=== PATIENT | male | born 1940 | race African-American/Black ===

== ENCOUNTER 2017-06-12 18:35 | Emergency (ER) | payer BC ==
--- NOTE | 2017-06-12 18:57 | Emergency Department Record ---
History of Present Illness - General Chief complaint: Rectal bleeding Stated complaint: RECTAL BLEEDING Time Seen by Provider: 06/12/17 18:52 Source: Patient Mode of Arrival: Ambulatory Limitations: No limitations - History of Present Illness Initial comments: 77 yo male presents to ED for evaluation of dark stools that began earlir today. Patient reports a history of PUD and diverticulosis resulting in colon resection for GI bleeding, has received transfusions previously as a result of GI bleeding as well. Patient denies abdominal pain symptoms or loose stools previously. Patient denies the use of anticoagulation medications. Patient has seen Dr. Lowery previously for EGD/Colonoscopy. MD complaint: Other (Clots) Onset/Timin -: Hour(s) Radiation: None Quality: Painless Improves with: None Worsens with: None Context: History of GI bleed Associated Symptoms: Denies other symptoms Treatments Prior to Arrival: None - Related Data Home Medications Medication Instructions Recorded Confirmed Last Taken Furosemide [Lasix] 20 mg PO DAILY 06/12/17 06/12/17 06/12/17 Meloxicam [Meloxicam] 7.5 mg PO DAILY 06/12/17 06/12/17 06/12/17 Previous Rx's Medication Instructions Recorded Hydrocodone/Acetaminophen [[place] 1 - 2 each PO QID #20 tablet 05/27/15 5-325 Tablet] Allergies Allergy/AdvReac Type Severity Reaction Status Date / Time No Known Drug Allergies Allergy Verified 06/12/17 18:52 Travel Screening - Travel/Exposure Within Last 30 Days Have you traveled within the last 30 days?: No Review of Systems Constitutional: Denies: Chills, Fever, Malaise, Night sweats Eyes: Denies: Eye discharge, Eye pain ENT: Denies: Congestion, Ear pain, Epistaxis Respiratory: Denies: Cough, Dyspnea Cardiovascular: Denies: Chest pain, Dyspnea on exertion Endocrine: Reports: Fatigue. Denies: Heat or cold intolerance Gastrointestinal: Reports: Melena. Denies: Abdominal pain, Nausea, Vomiting Genitourinary: Denies: Incontinence, Retention Musculoskeletal: Denies: Arthralgia, Back pain, Gout, Joint swelling Skin: Denies: Bruising, Change in color Neurological: Denies: Abnormal gait, Confusion, Headache Psychiatric: Denies: Anxiety Hematological/Lymphatic: Denies: Anemia, Blood Clots Past Medical History - SOCIAL HISTORY Smoking Status: Former smoker - RESPIRATORY Hx Respiratory Disorders: No - CARDIOVASCULAR Hx Cardio Disorders: Yes Hx Pacemaker/Defib: Yes (July 2014) - NEURO Hx Neuro Disorders: No - GI Hx GI Disorders: No Hx Abdominal Pain: Yes (umbilical and lower abdomen, increases w/ eating) Hx Diverticulitis: Yes Hx Ulcer: Yes Hx Wt Loss/Wt Gain: Yes (down 5-6 lbs in 2-3 months) - Hx Genitourinary Disorders: Yes Hx Prostate Problems: Yes - ENDOCRINE Hx Endocrine Disorders: No - MUSCULOSKELETAL Hx Musculoskeletal Disorders: Yes Hx Arthritis: Yes - PSYCH Hx Psych Problems: No - HEMATOLOGY/ONCOLOGY Hx Hematology/Oncology Disorders: Yes Hx Cancer: Yes (Prostate) Hx Radiation Therapy: Yes Family Medical History Hx Cancer: Brother/Sister Hx Heart Disease: Grandparents Physical Exam - General General Appearance: Alert, Oriented x3, Cooperative, Mild distress Limitations: No limitations - Head Head exam: Atraumatic, Normocephalic, Normal inspection Head exam detail: negative: Abrasion, Contusion, Carrillo's sign, General tenderness, Hematoma, Laceration - Eye Eye exam: Normal appearance. negative: Conjunctival injection, Periorbital swelling, Periorbital tenderness, Scleral icterus - ENT Ear exam: negative: Auricular hematoma, Auricular trauma Nasal Exam: negative: Active bleeding, Discharge, Dried blood Mouth exam: negative: Drooling, Laceration, Tongue elevation - Neck Neck exam: Normal inspection. negative: Meningismus, Tenderness - Respiratory Respiratory exam: Normal lung sounds bilaterally. negative: Respiratory distress, Rhonchi, Stridor, Wheezes - Cardiovascular Cardiovascular Exam: Regular rate, Normal rhythm, Normal heart sounds - GI/Abdominal GI/Abdominal exam: Soft. negative: Distended, Rebound, Rigid, Tenderness - Rectal Rectal exam: Deferred - exam: Deferred - Extremities Extremities exam: Normal inspection, Other (Delayed cap refill on examination). negative: Calf tenderness, Pedal edema, Tenderness - Back Back exam: Denies: CVA tenderness (R), CVA tenderness (L) - Neurological Neurological exam: Alert, Normal gait, Oriented X3 - Psychiatric Psychiatric exam: Normal affect, Normal mood - Skin Skin exam: Normal color. negative: Abrasion Type of lesion: negative: abrasion Course Vital Signs 06/12/17 18:46 Temperature 98.2 F Pulse Rate 90 Respiratory 20 Rate Blood Pressure 141/100 Pulse Ox 96 - Reevaluation(s) Reevaluation #1: 06/12/17 19:31 Labs reviewed, Hgb 9.3 (baseline 13-15, previous 9.7 06/25 during an episode of bleeding). BUN 26, Creatinine 0.9. Will initiate transfer to [facility]. Reevaluation #2: 06/12/17 19:41 Case was discussed with Dr. Fontenot, will arrange for bed placement and accept transfer. Patient and his SO were updated on all results, and plan for transfer. Vitals: BP 141/100, pulse 70's. Medical Decision Making - Lab Data Result diagrams: 06/12/17 19:05 06/12/17 19:05 Disposition Disposition: Transfer Clinical Impression: UGI bleed Disposition: Acute Care Hospital Transfer Transfer To: [facility] Reason For Transfer: UGI bleed, Anemia Accepting Physician: Corie Time Discussed w/Accepting Physician: 19:36 Condition: (2) Stable Forms: Patient Portal Access Time of Disposition: 19:36 Quality - Quality Measures Quality Measures: N/A - Blood Pressure Screening Does Patient Have Any of the Following: Active Dx of HTN Blood Pressure Classification: Hypertensive Reading Systolic Measurement: 141 Diastolic Measurement: 100 Screening for High Blood Pressure: Patient Exclusion, Hx of HTN [[id number]]
[2017-06-12 19:12] LABS: BASO % 0.2 % (0-6); EOS % 4.7 % (0-6); GRAN % 62.2 % (47-80); HEMATOCRIT 30.9 % (42.0-52.0); HEMOGLOBIN 9.3 gm/dl (14.0-18.0); LYMPH % 20.1 % (16-45); MEAN CELL VOLUME 81.3 fl (81-97); MEAN CORPUSCULAR HGB CONC 30.1 g/dl (32-36); MEAN PLATELET VOLUME 10.5 fl (7.4-10.4); MONO % 12.8 % (0-9); PLATELET COUNT 179 K/uL (130-400); RED CELL DISTRIBUTION WIDTH 16.9 % (11.5-14.5); WHITE BLOOD COUNT W/O DIFF 4.1 K/uL (4.2-12.2)
[2017-06-12 19:15] LABS: MEAN CORPUSCULAR HEMOGLOBIN 24.4 pg (27-33)
[2017-06-12 19:22] LABS: INR 1.1; PROTHROMBIN TIME (PATIENT) 11.4 SECONDS (9.5-12.1)
[2017-06-12 19:24] LABS: BLOOD UREA NITROGEN 26 mg/dL (8-23); CREATININE 0.9 mg/dL (0.7-1.2); EST GLOMERULAR FILTRATION RATE > 60 mL/min
[2017-06-12 19:27] LABS: GLUCOSE,RANDOM 113 mg/dL (74-109)
[2017-06-12 19:29] LABS: ALT/SGPT 12 U/L (<41); AST/SGOT 18 U/L (10.0-50.0)
[2017-06-12 19:30] LABS: ALB/GLOB RATIO 1.8 (1.1-1.8); ALBUMIN 3.2 g/dL (4.0-5.0); ALKALINE PHOSPHATASE 46 U/L (40-129)
[2017-06-12] MEDS ORDERED: 0.9 % SODIUM CHLORIDE 1000ML 1,000 ML IV SCH (20:00)
[2017-06-12 20:20] LABS: ABO GROUP A; ANTIBODY SCREEN NEGATIVE (NEGATIVE); RH TYPE POSITIVE
== END 2017-06-12 20:20 | disposition short-term general hospital (02) ==
LOC: ER 18:35
DX: K92.1 Melena (principal); R42 Dizziness and giddiness; I10 Essential (primary) hypertension; Z87.891 Personal history of nicotine dependence; Z95.0 Presence of cardiac pacemaker
CPT/HCPCS: 80053; 85025; 85610; 86850; 86900; 86901; 99285; J7030

== ENCOUNTER 2017-09-08 09:53 | Day surgery (SDC) | payer BC ==
[2017-09-08] MEDS ORDERED: LIDOCAINE 1% MDV (10MG/ML) 20ML VIAL SQ ONE (09:54)
[2017-09-08] MEDS ORDERED: PROPOFOL 10 MG/ML VIAL IV ONE (09:54)
--- NOTE | 2017-09-11 16:56 | Operative Note ---
DATE OF SURGERY: 09/08/2017 OPERATION: ESOPHAGOGASTRODUODENOSCOPY with biopsy. INDICATION: Recently-discovered gastric ulcerations with gastrointestinal tract bleeding. The patient returns at this time after approximately 2 months for reevaluation and particularly to assess healing. ANESTHESIA: Intravenous sedation was administered by the Department of Anesthesiology and included Diprivan titrated to effect. PROCEDURE: Following informed consent from this alert individual, including a discussion of the risks and benefits of the procedure and an opportunity for the patient to ask questions, the patient was in the left lateral decubitus position. The Olympus [id number] video endoscope was inserted into the esophagus without resistance. The proximal esophagus had a normal appearance with normal folds and distensibility. The mid and distal esophagus likewise were free from changes. The squamocolumnar junction was fairly smooth and well defined. The stomach was entered. There was evidence of bile gastritis noted with retained bilious liquid and some erythema to the mucosa. No ulcerations were noted throughout the gastric remnant. The patient had a previous Billroth II gastrectomy with a normal-appearing gastrojejunal anastomosis. The jejunal limbs were normal in appearance. Retroflexion in the stomach failed to demonstrate any additional changes. The endoscope was straightened. Biopsies from the gastric mucosa were obtained to assess for Helicobacter pylori and check histology. The endoscope was then withdrawn back through a normal-appearing esophagus and removed from the patient. He tolerated the procedure well and was returned to the recovery area in stable condition. IMPRESSION: 1. Bilateral gastritis. 2. Healed gastric ulcerations. 3. Status post Billroth II gastric resection. RECOMMENDATION: The patient will be maintained on acid blockade therapy. He is to avoid antiinflammatory medications. Clinically he states he has been doing well without melena, nausea or vomiting. Follow up will be with Dr. Charlie Joaquin and Corbin Acharya. CC: Nemesio Pineda
== END 2017-09-08 11:45 | disposition home or self-care (01) ==
LOC: HOP 09:53
PROVIDERS: ATTEND Internal Medicine Gastroenterology
DX: K29.70 Gastritis, unspecified, without bleeding (principal); Z90.3 Acquired absence of stomach [part of]; K21.9 Gastro-esophageal reflux disease without esophagitis; I10 Essential (primary) hypertension; D50.9 Iron deficiency anemia, unspecified